=== PATIENT | male | born 2005 ===

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

== ENCOUNTER 2023-06-07 12:47 | Emergency (ER) | payer OTHER, BC ==
[~2023-06-07] VITALS: Ht 190.5 cm; Wt 83.9 kg
[2023-06-07 13:22] VITALS: BP 126/86
[2023-06-07] MEDS ORDERED: Ketorolac Tromethamine 30mg Vial IM ONE (14:35)
== END 2023-06-07 14:54 | disposition home or self-care (01) ==
LOC: ER 12:47
DX: S83.92XA Sprain of unspecified site of left knee, initial encounter (principal); V47.5XXA Car driver injured in collision with fixed or stationary object in traffic accident, initial encounter
CPT/HCPCS: 29505; 73562-LT; 96372; 99283-25; J1885